=== PATIENT | female | born 1950 | race Caucasian/White ===

== ENCOUNTER 2022-05-01 13:30 | Outpatient (RCR) | payer MEDICARE, OTHER, SELFPAY ==
--- NOTE | 2022-04-05 10:08 | HP.OTEVAL ---
Patient's Visit Information TYLER GOLD is a 71 year old F, referred to Occupational Therapy by Dr. Flash Morgan MD, with a diagnosis of lymphedema. Date of Evaluation: 04/04/22 Occupational Therapist: Magdalena Lopez, OTR/Gonzalez, CHT - Subjective This 71 year old female was seen for OT eval with dx of lymphedema. pt states she had issues with swelling and SOB. was dx with venous insufficiency as well. Pt states she has had more issues with left LE since her left TKR with infection 8 months later infection. pt did have more sx on left LE with last one being 2015 bursectomy with wound vac. system. pt did have fall in 2019 and needed drained. Due to multiple sx this has cause sensitivity with anything resting on her leg and pt is reluctant to have thigh high compression socks on. Dr. mccauley'd thigh high but pt is worried they will roll and rub her legs and she is not sure she can tolerate pressure on her right knee. pt would like to know what she can do to improve her circulation. - Lymphedema (Circumferential Measure) Mid-foot: right 22cm left 22.5cm Ankle: right 30cm left 29cm Lower calf: right 32xm left 35cm Largest calf: right 48cm left 53cm Below knee: right 49cm left 50cm Above knee: right 63cm left 63cm Lower Exremity Comments: right knee 53cm left 61cm - Lower Limb Functional Index Lower Extremity Functional Score: 40 - Goals Demonstrate a 20% reduction in edema by d/c: Yes Demonstrate adequate knowledge of self-massage by 2nd week: Yes Demonstrate adequate knowledge skin care/prec by 2nd week: Yes Demonstrate adequate knowledge therapeutic exercises by d/c: Yes Select approp compression garment w/donning/care/wear by d/c: Yes Voice need to replace compression garment every 4-6mo by dc: Yes - Rehabilitation General Assessment: pt demo with BLE stage II lymphedema and using compression socks at 15-20mmHg are not mtg. her LE edema. Pt would benefit from skilled OT services for 3-4 visits to ensure pts understanding of life long mtg of lymphedema. Therapist ed. pt on lymphedema, lymph stimulation exercise, and use of compression garments ( thigh high, leggings or compression alternatives as Velcro closures devices ) lymph treatment options as in wraps or use of Velcro closure reduction garment Due to cost of garments pt is going to initiate the exercise, self massage and initiate use of her new 20-30 mmHg compression socks. pt to return in week and a half for review of exercise, measurements and to see what pt can afford (leggings, wraps, Velcro closure etc) in regard to her lymphedema treatments. pt is not receptive to thigh high compression socks they do have a tendency to roll and rub at the inner thigh region. She was more receptive to leggings with use of knee high compression socks. pt demo understanding and agree to POC. Rehabilitation Potential: Questionable - Anticipated Interventions Education re Life-long lymphedema Management, Education re Skin Care and Precautions, Education re Self Massage Techniques, Education re Correct Donning Tech,Care&Wearing Sched Comp Garments, Home Program - Visit Plan Frequency: 1-2x /Week Duration: 3 Weeks TEXT: Thank you for the opportunity to evaluate your patient. For Medicare and Medicare HMO plans, please review the plan of care and approve it. It will need to be FAXED BACK to us at [phone] for Medicare purposes. Please let me know if there are questions or concerns regarding this plan of care. Physician Signature: Date:
--- NOTE | 2022-05-01 14:02 | HP.OTDCSUM_ITS ---
It has been my pleasure to treat TYLER GOLD under orders from Dr. Flash Morgan MD, for the diagnosis of lymphedema for a total of 3 visit(s). Please see the following information for a summary of their discharge status. % Improvement: 70 Objective/Function: ankle. right 26cm left 26cm. lower calf right 32cm left 48cm. largest calf right 48cm left 51cm. below knee right 48cm left 52cm. above knee right 62cm left 62cm Patient Goals: Learn how to Manage Lymphedema, Learn how to Apply Compression S tockings Demonstrate a 20% reduction in edema by d/c: Yes Demonstrate adequate knowledge of self-massage by 2nd week: Yes Demonstrate adequate knowledge skin care/prec by 2nd week: Yes Demonstrate adequate knowledge therapeutic exercises by d/c: Yes Select approp compression garment w/donning/care/wear by d/c: Yes Voice need to replace compression garment every 4-6mo by dc: Yes Plan: d/c Discharge Comments: pt was seen for 3 visits- therapist and pt agree to HEP of lymph stimulation exercise with AROM, and self manual lymph drainage massage as well as using thigh high compression sock. Therapist also ed pt on use of wraps at night to assist with circulation. Pt demo understanding replacing compression socks every 4-6 months. Pt agrees with D/c. If there are questions or concerns regarding this patient's occupational therapy, please fell free to call me at [phone]. Thank you for the referral of this patient. Sincerely, Magdalena Lopez, OTR/L, CHT
== END 2022-05-01 14:53 | disposition home or self-care (01) ==
LOC: OT 13:30
PROVIDERS: Referring Provider Surgery Vascular Surgery; Visit Provider Surgery Vascular Surgery
DX: I89.0 Lymphedema, not elsewhere classified (principal)
CPT/HCPCS: 97110; 97166; 97530

== ENCOUNTER → 2023-10-22 | Outpatient (CLI) | payer MEDICARE, OTHER, SELFPAY ==
[2023-10-22 12:54] VITALS: BP 178/90; PULSE 74; RESP 18; O2SAT 98; BMI 45.5
--- NOTE | 2023-10-22 13:05 | CT_ITS ---
STUDY: CT CHEST WITH CONTRAST REASON FOR EXAM: Female, 73 years old. ABD STRESS RADIATION DOSAGE (If Supplied By Facility): CTDIvol = ( 55.74 ) mGy, DLP = ( 4118.04 ) mGycm TECHNIQUE: Transaxial imaging was performed following intravenous administration of IV 75mL Isovue-300. Cardiac over read examination. Individualized dose optimization techniques were used for this CT. COMPARISON: No relevant priors. FINDINGS: CHEST Increased linear markings more prominent at the lung bases suggestive of scarring. There is no demonstrated pleural abnormality. There are calcifications of the coronary arteries. There are multiple small lymph nodes within the mediastinum, which are normal in size and morphology most compatible with reactive lymph hyperplasia. Normal hilar regions. Normal unenhanced pulmonary arteries. There is minimal atherosclerotic calcification of the aortic arch. There are degenerative changes of the thoracic spine. There is no demonstrated abnormality of the visualized upper abdomen. CT/Limited Chest CT Cardiac Only IMPRESSION: Coronary artery calcification. Small mediastinal lymph nodes. . Electronically Signed: Adelfo Wagner MD at 12:18 EDT ,
[2023-10-22] MEDS: 0.9% Saline Lock 10 ML Syringe IV (13:07)
[2023-10-22 13:15] VITALS: BP 161/91; PULSE 80
[2023-10-22] MEDS: Nitroglycerin SL (ED/IMG/CATH) 0.4 MG TABLET SL (13:15)
[2023-10-22 13:27] VITALS: BP 161/91; PULSE 80
[2023-10-22 13:27] LABS: CREATININE FINGERSTICK < 1.0 mg/dL (0.55-1.02); EGFR FINGERSTICK > 60.0000 mL/min (>60)
[2023-10-22] MEDS: Metoprolol Tartrate 5 MG/5 ML Vial IV (13:27)
[2023-10-22 13:33] VITALS: BP 161/91; PULSE 65; RESP 18; O2SAT 91
--- NOTE | 2023-10-23 18:04 | CCTA.WCONT ---
CCTA w/Cont Coronary Arteries Date of Study:: 10/22/23 Coronary Calcium Scoring: High-resolution Computed Tomographic imaging of the chest was performed on [10/22/23 ], with particular attention paid to the coronary arteries. Intravenous contrast agent was administered per protocol and images reconstructed and displayed. LEFT MAIN CORONARY ARTERY: This arises from the left main coronary cusp with no significant stenosis noted bifurcates to left anterior descending artery and left circumflex artery. [] LEFT ANTERIOR DESCENDING CORONARY ARTERY: Left anterior descending artery is noted to have eccentric calcification present with moderate plaque in the proximal region. The distal vessel has mild diffuse disease. [] LEFT CIRCUMFLEX CORONARY ARTERY: No significant atherosclerotic plaques noted in this vessel [] RIGHT CORONARY ARTERY: Mild atherosclerotic plaquing noted in this vessel. Conclusion: Coronary CTA with suboptimal images and moderate atherosclerotic plaquing noted mainly in the proximal to mid left anterior descending artery region. []
== END | disposition home or self-care (01) ==
LOC: CT 12:38
PROVIDERS: Referring Provider Internal Medicine Cardiovascular Disease; Visit Provider Internal Medicine Cardiovascular Disease
DX: R94.39 Abnormal result of other cardiovascular function study (principal)
CPT/HCPCS: 75574; 76380; 96374; Q9967; A4216